=== PATIENT | female | born 1960 | race Caucasian/White ===

== ENCOUNTER 2016-08-08 16:37 | Emergency (ER) | payer SELFPAY ==
[2016-08-08] MEDS ORDERED: Ibuprofen TAB* 600 MG PO ONE (17:02)
--- NOTE | 2016-08-08 17:06 | UC ---
Hand/Wrist HPI - HPI Summary HPI Summary: patient tripped and fell landing on right forearm and hand around 930 am this morning. - History Of Current Complaint Stated Complaint: HAND INJURY Time Seen by Provider: 08/08/16 16:58 Hx Obtained From: Patient ?: No Onset/Duration: Sudden Onset, Lasting Hours Severity Initially: Moderate Severity Currently: Moderate Character Of Pain: Sharp, Aching Aggravating Factor(s): Movement Alleviating: Nothing Associated Signs And Symptoms: Positive: Swelling, Bruising - Allergies/Home Medications Allergies/Adverse Reactions: Allergies Allergy/AdvReac Type Severity Reaction Status Date / Time No Known Allergies Allergy Verified 08/08/16 17:29 PMH/Surg Hx/FS Hx/Imm Hx Previously Healthy: Yes Endocrine History Of: Denies: Diabetes, Hypothyroidism Psychological History Of: Reports: Anxiety - OK W/O MEDS ANXIETY AT TIMES Cancer History Of: Denies: Breast Cancer - Surgical History Surgical History: Yes Surgery Procedure, Year, and Place: 1980 GLANGL[facility] FOOT [facility]. 1999 [facility]. - Family History Known Family History: Negative: Cardiac Disease, Hypertension - Social History Alcohol Use: Daily Substance Use Type: None Smoking Status (MU): Never Smoked Tobacco Review of Systems Constitutional: Negative Skin: Bruising Eyes: Negative ENT: Negative Respiratory: Negative Cardiovascular: Negative Gastrointestinal: Negative Genitourinary: Negative Motor: Negative Neurovascular: Negative Musculoskeletal: Arthralgia, Decreased ROM, Edema, Myalgia Neurological: Negative Psychological: Negative All Other Systems Reviewed And Are Negative: Yes Physical Exam Triage Information Reviewed: Yes Appearance: Well-Nourished, Ill-Appearing, Pain Distress Vital Signs Reviewed: Yes Eye Exam: Normal Eyes: Positive: Conjunctiva Clear ENT Exam: Normal ENT: Positive: Hearing grossly normal, Pharynx normal, TMs normal Dental Exam: Normal Respiratory Exam: Normal Respiratory: Positive: Chest non-tender, Lungs clear, Normal breath sounds Cardiovascular Exam: Normal Cardiovascular: Positive: RRR, No Murmur, Pulses Normal Abdominal Exam: Normal Abdomen Description: Positive: Nontender, No Organomegaly, Soft Bowel Sounds: Positive: Present Musculoskeletal Exam: Normal Musculoskeletal: Positive: Strength Intact, ROM Intact, No Edema Neurological Exam: Normal Neurological: Positive: Alert, Muscle Tone Normal Psychological Exam: Normal Skin: Positive: Other - mild swelling in the hand, brusing and swelling over the distal radius, color and sensation are good, able to slightly move fingers limted due to pain Hand/Wrist Course/Dx - Course Course Of Treatment: hx obtained, exam performed, meds reviewed, ibuprofen given , hand and forearm xray obtained, neg, maria guadalupe and splint applied, - Differential Dx/Diagnosis Differential Diagnosis/HQI/PQRI: Contusion, Dislocation, Fracture, Sprain, Strain Provider Diagnoses: hand swelling. hand contusion Discharge - Discharge Plan Condition: Stable Disposition: HOME Patient Education Materials: Contusion in Adults (ED) Additional Instructions: 1. rest and use the maria guadalupe fro compression and support. 2. continue with the ibuprofen 400 -600 mg every 4-6 hours. your last dose was at 5:15 pm. 3. use the splint for the next few day, take it out and move it through ROM a couple times a day. Follow up if you are not improving in the next few days.
--- NOTE | 2016-08-08 17:30 | RAD ---
INDICATION: Pain at the lateral right small finger after a fall COMPARISON: None. TECHNIQUE: 4 views of the right hand were obtained. FINDINGS: The adequately corticated bones are in normal alignment. No significant focal osseous abnormality or fracture is seen. Joint spaces appear maintained. IMPRESSION: Normal right hand radiograph. If the patient's symptoms persist, follow-up imaging is recommended.
[2016-08-08 17:44] VITALS: BP 102/63
--- NOTE | 2016-08-08 18:20 | RAD ---
INDICATION: Hand pain after a fall TECHNIQUE: 2 views of the right forearm were obtained. FINDINGS: The bones are normal alignment. Joint spaces appear maintained. No fracture is seen. IMPRESSION: No radiographic evidence of acute fracture or dislocation. If the patient's symptoms persist, follow-up imaging is recommended.
== END 2016-08-08 18:08 | disposition home or self-care (01) ==
LOC: UCEAST 16:37
DX: M25.441 Effusion, right hand (principal); S60.221A Contusion of right hand, initial encounter; W01.0XXA Fall on same level from slipping, tripping and stumbling without subsequent striking against object, initial encounter; F41.9 Anxiety disorder, unspecified
CPT/HCPCS: 99213; A9270-GY; G0463

== ENCOUNTER 2017-07-18 07:16 | Emergency (ER) | payer OTHER ==
[2017-07-18 07:29] VITALS: BP 110/69
--- NOTE | 2017-07-18 17:31 | UC ---
Rios Shepard Angela, scribed for Danie Stuart MD on 07/18/17 at 0734 . Eye Complaint HPI - HPI Summary HPI Summary: This pt is a 56 y/o female presenting to [facility] c/o right eye redness since last night. Pt states her redness has been worsening and this morning it became worse. Denies any eye pain, eye discharge, increase in eye tearing, blurry vision. Pt denies any trauma or injury to her eye. No fever. Denies any PMHx. - History of Current Complaint Chief Complaint: UCEye Stated Complaint: EYE COMPLAINT Time Seen by Provider: 07/18/17 07:27 Hx Obtained From: Patient Onset/Duration: Lasting Hours, Still Present Timing: Hours Severity Currently: None Pain Intensity: 0 Pain Scale Used: 0-10 Numeric Location of Injury: Conjunctiva Aggravating Factor(s): Nothing Alleviating Factor(s): Nothing Associated Signs And Symptoms: Positive: Negative - Allergies/Home Medications Allergies/Adverse Reactions: Allergies Allergy/AdvReac Type Severity Reaction Status Date / Time No Known Allergies Allergy Verified 07/18/17 07:26 PMH/Surg Hx/FS Hx/Imm Hx Other Endocrine History: DENIES: diabetes Other Cardiovascular History: DENIES: HTN - Surgical History Surgical History: Yes Surgery Procedure, Year, and Place: 1980 [facility]OT [facility]. 1999 [facility]. Left hand surgery. - Family History Known Family History: Negative: Cardiac Disease, Hypertension, Diabetes - Social History Alcohol Use: Daily Alcohol Amount: 2 per day Substance Use Type: None Smoking Status (MU): Never Smoked Tobacco - Immunization History Most Recent Influenza Vaccination: NONE Most Recent Tetanus Shot: UTD Most Recent Pneumonia Vaccination: NONE Review of Systems Constitutional: Negative Skin: Negative Eyes: Eye Redness, Other - NEG: blurry vision, drainage, eye pain ENT: Negative Respiratory: Negative Cardiovascular: Negative Gastrointestinal: Negative Genitourinary: Negative Motor: Negative Neurovascular: Negative Musculoskeletal: Negative Neurological: Negative All Other Systems Reviewed And Are Negative: Yes Physical Exam - Summary Physical Exam Summary: VITAL SIGNS: Reviewed. GENERAL: Patient is a well-developed and nourished female who is lying comfortable in the stretcher. Patient is not in any acute respiratory distress. HEAD AND FACE: Normocephalic EYES: PERRLA, EOMI x 2. Pt has soft subconjunctival hemorrhage on the right eye. EARS: Hearing grossly intact. MOUTH: Oropharynx within normal limits. NECK: Supple, trachea is midline, no adenopathy, no JVD, no carotid bruit. CHEST: Symmetric, no tenderness at palpation LUNGS: Clear to auscultation bilaterally. No wheezing or crackles. CVS: Regular rate and rhythm, S1 and S2 present, no murmurs or gallops appreciated. ABDOMEN: Soft, non-tender. Bowel sounds are normal. No abdominal abnormal pulsations. EXTREMITIES: Full ROM in all major joints, no edema, no cyanosis or clubbing. NEURO: Alert and oriented x 3. No acute neurological deficits. Speech is normal and follows commands. SKIN: Dry and warm Triage Information Reviewed: Yes Vital Signs: Initial Vital Signs Temp 97.9 F 07/18/17 07:27 Pulse 83 07/18/17 07:27 Resp 14 07/18/17 07:27 BP 110/69 07/18/17 07:27 Pulse Ox 99 07/18/17 07:27 Vital Signs Reviewed: Yes Eye Complaint Course/Dx - Course Course Of Treatment: This pt is a 56 y/o female presenting to [facility] c/o right eye redness since last night. Pt states her redness has been worsening and this morning it became worse. Denies any eye pain, eye discharge, increase in eye tearing, blurry vision. Pt denies any trauma or injury to her eye. No fever. Denies any PMHx. On physical exam the pt has a soft conjunctival hemorrhage. Pt was instructed to return to the urgent care or go to ER immediately if any of the symptoms return or worsens. Plan of care was discussed with the patient and pt understands and agrees. All questions were answered to patient satisfaction. There were no further complaints or concerns. Pt will be discharged to home with follow up from PCP. Pt is hemodynamically stable, alert and oriented x3. - Differential Dx/Diagnosis Provider Diagnoses: Subconjunctival hemorrhage Discharge - Sign-Out/Discharge Documenting (check all that apply): Discharge - discharge to home - Discharge Plan Condition: Stable Disposition: HOME Patient Education Materials: Subconjunctival Hemorrhage (ED) Referrals: Antonelal Sanchez MD [Primary Care Provider] - Additional Instructions: F/U with PCP in 3 days. If worsen please go tot he ED immediately. The documentation as recorded by the Rios montiel Angela accurately reflects the service I personally performed and the decisions made by me, Danie Stuart MD.
== END 2017-07-18 07:45 | disposition home or self-care (01) ==
LOC: UCEAST 07:16
DX: H11.31 Conjunctival hemorrhage, right eye (principal)
CPT/HCPCS: 99211; G0463